=== PATIENT | female | born 1990 | race Caucasian/White ===

== ENCOUNTER 2016-10-14 22:06 | Emergency (ER) | payer SELFPAY ==
[~2016-10-14] VITALS: Ht 157.5 cm; Wt 72.6 kg
--- NOTE | 2016-10-14 22:40 | NUR ---
Patient discharged to home in stable conditon. Written and verbal after care instructions given. Patient verbalizes understanding of instructions.
== END 2016-10-14 22:41 | disposition home or self-care (01) ==
LOC: ER 22:08
DX: F41.9 Anxiety disorder, unspecified (principal); Z88.2 Allergy status to sulfonamides
CPT/HCPCS: 93005; A4663